=== PATIENT | female | born 1975 | race Caucasian/White ===

== ENCOUNTER 2021-08-01 14:04 | Outpatient (REF) | payer MEDICAID, SELFPAY ==
--- NOTE | 2021-08-01 13:15 | ENDOMET_PTH ---
PATIENT: Ermelinda Vu LOC: [facility] U#:[id number] AGE/SX: 46/F ROOM: RE08/01/[address]: Megan Limon : 1975 BED: DIS: 08/01/2021 SPEC #: [id number] RECD: 08/01/21 17:22 STATUS: CARLOS REQ #: [id number] ELVI: 08/01/21 13:[address]: Megan Limon DEPT: Surgical Specimen RECD BY: Shoshana Mancini ENTERED: 08/01/21 17:32 SP TYPE: Endomet OT DR: Rosalie Marie Tissues: 1 - ENDOMETRIUM BX/ALEJANDROETTE Procedures: GROSS AND MICRO LEVEL 4 Comments: [id number]
--- NOTE | 2021-08-01 13:15 | PAPFT_PTH ---
PATIENT: Ermelinda Vu LOC: [facility] U#:[id number] AGE/SX: 46/F ROOM: RE08/01/[address]: Megan Limon : 1975 BED: DIS: 08/01/2021 SPEC #: [id number] RECD: 08/01/21 17:41 STATUS: CARLOS REShai #: [id number] ELVI: 08/01/21 13:[address]: Megan Limon DEPT: [facility] Cytology RECD BY: Shoshana Mancini ENTERED: 08/01/21 17:41 SP TYPE: PAPFT OTHR DR: Rosalie Marie Tissues: 1 - CX/ENDOCX FOR PAP SMEARS Procedures: PAP THIN PREP/UVM Screening HPV DNA PROBE Comments: [id number]
== END 2021-08-01 14:05 | disposition home or self-care (01) ==
LOC: LBN 14:04
PROVIDERS: PCP Internal Medicine; Visit Provider Obstetrics & Gynecology Gynecology
DX: N93.9 Abnormal uterine and vaginal bleeding, unspecified (principal); Z12.4 Encounter for screening for malignant neoplasm of cervix
CPT/HCPCS: 88142; 88305; 87624

== ENCOUNTER 2021-09-06 02:39 | Outpatient (CLI) | payer MEDICAID, SELFPAY ==
[2021-09-06 09:12] LABS: Source Nasal/Nares
[2021-09-06 09:55] LABS: HCT 42.5 % (36.0-46.0); HGB 14.4 g/dL (11.2-15.7); MCHC 33.9 % (32.0-36.0); MCV 91 fL (80-95); MPV 8.8 fL (8.0-11.0); Platelet Count 244 10^3/uL (130-400); RBC 4.65 10^6/uL (3.93-5.22); RDW 11.6 % (11.7-14.6); WBC 6.72 10^3/uL (4.4-10.8)
[2021-09-06 10:48] LABS: HCG Qual (Serum) Negative
[2021-09-06 10:52] LABS: ALT 31 U/L (14-59); AST 28 U/L (15-37); Alkaline Phosphatase 93 U/L (46-116); Anion Gap 8.3 mmol/L (3-11); BUN 11 mg/dL (7-18); Bilirubin, Total 0.3 mg/dL (0.2-1.0); CO2 29.7 mmol/L (21.0-32.0); CREATININE 0.7 mg/dL (0.55-1.02); Calcium 8.7 mg/dL (8.5-10.1); Chloride 103 mmol/L (98-107); Glucose 93 mg/dL (74-106); Potassium 4.1 mmol/L (3.5-5.1); Sodium 141 mmol/L (136-145); Total Protein 7.1 g/dL (6.4-8.2)
[2021-09-06 15:42] LABS: COVID-19 PCR Negative (Negative)
== END 2021-09-06 02:40 | disposition home or self-care (01) ==
LOC: LBO 02:39
PROVIDERS: PCP Internal Medicine; Visit Provider Obstetrics & Gynecology Gynecology
DX: R10.2 Pelvic and perineal pain (principal); N92.0 Excessive and frequent menstruation with regular cycle; Z20.822 Contact with and (suspected) exposure to COVID-19; Z01.818 Encounter for other preprocedural examination; Z01.812 Encounter for preprocedural laboratory examination
CPT/HCPCS: 36415; 80053; 85027; 86850; 86900; 86901; 87635; 84703

== ENCOUNTER 2021-09-06 02:39 | Outpatient (CLI) | payer MEDICAID, SELFPAY | END 2021-09-06 02:40 | disposition home or self-care (01) | LOC: LBO 02:39 | PROVIDERS: PCP Internal Medicine; Visit Provider Obstetrics & Gynecology Gynecology ==

== ENCOUNTER 2021-09-07 09:13 | Day surgery (SDC) | payer MEDICAID, SELFPAY ==
[2021-09-07] VITALS (10 sets, daily range): BP systolic 136–160; BP diastolic 62–85; PULSE 63–75; RESP 16–22; TEMP 36.3–37.1; O2SAT 98–100; BMI 25.0
[2021-09-07] MEDS: Lactated Ringers 1,000 ML 125 ML IV (10:02)
--- NOTE | 2021-09-07 10:54 | ANES.PREOP_ITS ---
General Info Date of Service Date Performed: 09/07/21 Height: 5 ft 1 in Weight: 60 kg Body Mass Index (BMI): 25.0 Surgical Procedure: Operation Date: 09/07/21 11:10 Proposed Procedure Side Surgeon p Endometrial Ablation HTA Megan Limon MD Meds Allergies and Home Medications Allergies Allergy/AdvReac Type Severity Reaction Status Date / Time venom-wasp Allergy Severe Anaphylaxis Verified 09/07/21 09:40 fenofibrate Allergy Mild Other (See Verified 09/07/21 09:41 Comment) Penicillins Allergy Mild Hives Verified 09/07/21 09:41 Home Medication Medication Instructions Recorded epinephrine 0.3 mg/0.3 mL 0.3 mg IM ONCE 09/22/20 injection, auto-injector (EpiPen) trazodone 50 mg tablet 50 mg PO DAILY 09/22/20 Current Visit Medications: Current Medications Generic Name Dose Route Start Last Admin Trade Name Freq PRN Reason Stop Dose Admin Ringer's Solution 1,000 mls @ 125 mls/hr 09/07/21 06:00 09/07/21 10:02 IV 10/06/21 23:59 125 mls/hr INFUSION BARBARA Administration IV Miscellaneous Supplies 1 each 09/07/21 06:00 Iv Access IV 10/06/21 23:59 DIRECTED BARBARA Sodium Chloride 0 ml 09/07/21 06:00 Normal Saline Flush 10 Ml Syr IV 10/06/21 23:59 PRN PRN Sodium Chloride 0 ml 09/07/21 06:00 Normal Saline 10 Ml Vial IJ 10/06/21 23:59 DIRECTED PRN Sterile Water 0 ml 09/07/21 06:00 Water,Injection,Sterile 10 Ml Vial IJ 10/06/21 23:59 DIRECTED PRN PFSH Active Problems Active Problems: Problem Status Onset Code Intramural uterine fibroid D25.1 Pelvic and perineal pain R10.2 Hypertriglyceridemia E78.1 Hyperlipidemia E78.5 Anxiety F41.9 Panic attack F41.0 Tobacco use Z72.0 Nightmares F51.5 PTSD (post-traumatic stress disorder) F43.10 Fibromyalgia M79.7 Family history of premature coronary heart disease Z82.49 Plantar fasciitis M72.2 Depressive disorder F32.9 Heavy menstrual bleeding N92.0 Otomycosis of both ears B36.9, H62.43 Preoperative exam for gynecologic surgery Z01.818 Medical History Medical History Carpal tunnel syndrome Patient denies Flashbacks Ganglion cyst Genital herpes pt. denies Genital warts pt. denies Hearing loss Insomnia Low back pain Lump of left breast Otitis media, purulent Plantar fascia syndrome Plantar nerve lesion per patient she does not have. Secondary syphilis of skin and mucous membrane Medical History Comments:: pt. stated that her daughter woke up screaming after the surgery Surgical History Surgical History H/O section 04/29/1995 H/O wisdom tooth extraction History of bilateral ligation of fallopian tubes 2013 Tobacco Smoking/Tobacco Use Status: Former Tobacco Use Alcohol Alcohol Intake: never Substance Use Substance use: Daily Substance use type: marijuana Details: Marajuana use for anxiety Prental History History 3 Para 2 Hx # Term Pregnancies Multiple births Hx # Pregnancies Ectopic pregnancies AB induced Hx Number of Living Children AB spontaneous 1 Vital Signs and Lab Results Vital Signs Most Recent Vital Signs in EMR: Most Recent Vital Signs Temp Pulse Resp BP Pulse Ox 37.1 C 75 17 139/67 98 09/07/21 09:44 09/07/21 09:44 09/07/21 09:44 09/07/21 09:44 09/07/21 09:44 Lab Results Blood Type / Crossmatch: Patient ABO/Rh A Negative 09/07/21 Antibody Screen NEGATIVE 09/06/21 Complete Blood Count: White Blood Count 6.72 10^3/uL (4.4-10.8) 09/06/21 09:42 Red Blood Count 4.65 10^6/uL (3.93-5.22) 09/06/21 09:42 Hemoglobin 14.4 g/dL (11.2-15.7) 09/06/21 09:42 Hematocrit 42.5 % (36.0-46.0) 09/06/21 09:42 Platelet Count 244 10^3/uL (130-400) 09/06/21 09:42 Complete Metabolic Panel: Sodium Level 141 mmol/L (136-145) 09/06/21 09:42 Potassium Level 4.1 mmol/L (3.5-5.1) 09/06/21 09:42 Chloride Level 103 mmol/L (98-107) 09/06/21 09:42 Carbon Dioxide Level 29.7 mmol/L (21.0-32.0) 09/06/21 09:42 Blood Urea Nitrogen 11 mg/dL (7-18) 09/06/21 09:42 Creatinine 0.7 mg/dL (0.55-1.02) 09/06/21 09:42 Estimated GFR/1.73 m2 >= 60.00 (mL/min/1.73m2) 09/06/21 09:42 Calcium Level 8.7 mg/dL (8.5-10.1) 09/06/21 09:42 Albumin 4.0 g/dL (3.4-5.0) 09/06/21 09:42 Glucose Level 93 mg/dL (74-106) 09/06/21 09:42 Liver Function Panel: Alanine Aminotransferase (ALT/SGPT) 31 U/L (14-59) 09/06/21 09: 42 Aspartate Amino Transf (AST/SGOT) 28 U/L (15-37) 09/06/21 09:42 Coagulation Panel: No Data to Display Cardiac Panel: No Data to Display Arterial Blood Gas: No Data to Display Venous Blood Gas: No Data to Display Pancreas Panel: No Data to Display Thyroid Panel: No Data to Display Infectious Disease: Coronavirus (COVID-19)(PCR) Negative (Negative) 09/06/21 09:00 Coronavirus 2019 Source Nasal/Nares 09/06/21 09:00 Blood Cultures: No Data to Display Toxicology Panel: No Data to Display Panel: Serum HCG, Qualitative Negative 09/06/21 09:42 Anesthesia Assessment and Plan Anesthesia History Personal History: No History of Anesthesia Complications Family History: Other (15 yo Daughter woke up screaming and crying after TKA sp trauma) Exercise Tolerance Exercise Tolerance: Metabolic Equivalents>4 Pertinent Negatives Pertinent Negatives: No Symptoms of GERD, No Major Cardiovascular Symptoms or Complaints, No Major Pulmonary Symptoms or Complaints (Quit smoking cigarettes 2 years ago, smokes marijuana daily ) and No History of CVA/TIA Cardiac & Pulmonary Exam Cardiac Exam: Normal S1/S2 Heart Sounds Pulmonary Exam: Clear Bilateral Breath Sounds Implantable Cardiac Device Does patient have a Pacemaker or an ICD?: No Airway Exam Known Difficult Airway: No Mallampati Class: 1 Mouth Opening: Normal (> 3cm) Thyromental Distance: Greater than 3 cm Neck Range of Motion: Full ROM Neck Circumference: Normal Teeth Condition: Normal Dentition and Generalized Poor Dentition (#11 broken in half, bottom right missing two teeth) ASA Classification ASA Score: ASA 2 Emergency Case?: No NPO Status NPO Status: NPO Clears >2 hours, Solids >8 hours Status Status: Negative HCG Anesthesia Plan Resuscitation Status: Full Code Anesthesia Technique: General Anesthesia Airway Planned: LMA Monitors Used: Standard Monitors
--- NOTE | 2021-09-07 12:13 | PDOC.DSDIS_ITS ---
Discharge Plan Disposition Patient Disposition: HOME Condition: Good Discharge Details Reason For Visit: Hydrothermal endometrial ablation Attending Provider: Megan Limon Primary Care Provider: Rosalie Marie Home Meds and New Rx's Prescriptions: No Action epinephrine [EpiPen] 0.3 mg/0.3 mL auto-injector 0.3 mg IM ONCE Rx Instructions: as a single dose trazodone 50 mg tablet 50 mg PO DAILY Discharge Instructions Additional Instructions: Please call Dr. Limon with any concerns or questions. If you have bleeding h eavier than a regular menses or pain not relieved with Motrin or Percocet then call [phone]. I will have a prescription for Percocet at your pharmacy you may pick it up when you are discharged. [facility] your follow-[facility] 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
--- NOTE | 2021-09-07 12:50 | W.ANESPOSTOP ---
Postoperative Evaluation Date, Time and Location Date Performed: 09/07/21 Time Performed: 11:50 Patient Location: Day Surgery Unit Vital Signs Most Recent Imported Vital Signs: Most Recent Vital Signs Temp Pulse Resp BP Pulse Ox 36.4 C L 67 20 148/62 H 100 09/07/21 12:47 09/07/21 12:47 09/07/21 12:47 09/07/21 12:47 09/07/21 12:47 Pain Score Most Recent Pain Score: Most Recent Pain Score Pain Level 0 09/07/21 12:47 Assessment Mental Status: Awake (Alert & Oriented to Patient Baseline) Airway and Respiratory Function: Patent airway with normal (patient baseline) respiratory exam Cardiovascular Function: Hemodynamically Stable Hydration Status: Adequately Hydrated Nausea & Vomiting: No Nausea or Vomiting Pain: Pt. Denies Any Pain Peripheral Nerve Block: Patient did not receive a nerve block
[2021-09-07] MEDS: oxyCODONE 5 mg/Acetaminophen 325 mg TAB PO (13:11)
--- NOTE | 2021-09-08 13:18 | W.PM.OP ---
Date of service: 09/08/21 Time of Service: 12:18 Operative Note Operative Note DATE OF PROCEDURE: 09/07/21 PRE-OP DIAGNOSIS: abnormal uterine bleeding POST-OP DIAGNOSIS: same PROCEDURE: Hydrothermal endometrial ablation SURGEON: Megan Limon Refer to Anesthesia Record ESTIMATED BLOOD LOSS: 0 PATHOLOGY: none sent COMPLICATIONS: None Patient was transported to: same day Patient's condition: stable Indications: Pt is a 45yo female with a longstanding hx?heavy bleeding and menstrual discomfort. Her main issue has been heavy flow, abdominal bloating and up to 3 menses/mo. Findings: Normal-appearing endometrial cavity with exception of 1 cm polyp right fundus in proximity to the right tubal ostia. Procedure Description: Patient was taken to the operating room where she was placed in the dorsal supine position and LMA general anesthesia was administered without difficulty. She was then placed in the dorsolithotomy position in yellowfin stirrups and prepped and draped in the usual sterile fashion. SCDs were in place. No antibiotics were required. After a surgical timeout was performed a bivalve speculum was placed in the patient's vagina. The anterior lip of the cervix was infiltrated with 1 cc 0.25% bupivacaine and a single-tooth tenaculum was used to grasp the anterior lip of the cervix. A paracervical block was performed with infiltration of 5 cc of 0.25% bupivacaine at the 4 o'clock and 8 o'clock paracervical spaces respectively. Cervix was then sequentially dilated to a maximum of 8 Janey. A HTA hysteroscope sheath was inserted into the uterine cavity and a cavity assessment was performed with the above noted findings. The tip of the hysteroscope sheath was positioned to allow visualization of the uterine fundus, both tubal ostia in the midportion of the uterine cavity. The sheath was protected from the vaginal zapata by the vaginal speculum. Heated isotonic saline was then administered via gravity into the uterus through the sheath. Once a safety assessment was performed the treatment phase of the procedure began the uterine cavity was treated with heated isotonic saline at 90 ?C for 10 minutes with continuous visualization of the process via hysteroscope. Intrauterine cool-down phase was performed for 1 minute. The uterine cavity was carefully assessed with hysteroscopy and was noted to have a satisfactory treatment effect and the integrity of the uterine cavity was confirmed. The endometrial polyp was not identified at the completion of the procedure. After these findings the hysteroscope was removed and the instruments removed from the vagina. Tenaculum site was noted to be hemostatic. The patient was placed in the dorsal supine position. She was successfully awakened from anesthesia and transported to day surgery unit in stable condition. All sponge lap needle counts correct x2
== END 2021-09-07 13:45 | disposition home or self-care (01) ==
PROVIDERS: PCP Internal Medicine; Visit Provider Obstetrics & Gynecology Gynecology
PROC: (CPT 58353; principal; 2021-09-07 11:00)
DX: N93.8 Other specified abnormal uterine and vaginal bleeding (principal); R10.2 Pelvic and perineal pain; D25.1 Intramural leiomyoma of uterus; E78.1 Pure hyperglyceridemia; E78.5 Hyperlipidemia, unspecified; F41.0 Panic disorder [episodic paroxysmal anxiety]; F17.210 Nicotine dependence, cigarettes, uncomplicated; M79.7 Fibromyalgia; F32.A Depression, unspecified
CPT/HCPCS: 58563; 36415; 86900; 86901; J0131; J1100; J1885; J2250; J2405

== ENCOUNTER 2023-10-31 15:54 | Outpatient (REF) | payer MEDICAID, SELFPAY ==
--- NOTE | 2023-10-31 15:30 | PAPFT_PTH ---
PATIENT: Ermelinda Vu LOC: [facility] U#:[id number] AGE/SX: 48/F ROOM: RE10/31/[address]: Brenda Prado MD : 1975 BED: DIS: 10/31/2023 SPEC #: [id number] RECD: 10/31/23 18:21 STATUS: CARLOS REShai #: [id number] ELVI: 10/31/23 15:[address]: Brenda Prado DEPT: [facility] Cytology RECD BY: Shoshana Mancini ENTERED: 10/31/23 18:21 SP TYPE: PAPFT OTHR DR: Rosalie Marie Tissues: 1 - CX/ENDOCX FOR PAP SMEARS Procedures: PAP THIN PREP/UVM Screening HPV DNA PROBE Comments: [id number] (HPV 16 & 18/45)
== END 2023-10-31 15:55 | disposition home or self-care (01) ==
LOC: LBN 15:54
PROVIDERS: PCP Internal Medicine; Visit Provider Obstetrics & Gynecology
DX: Z12.4 Encounter for screening for malignant neoplasm of cervix (principal); Z11.51 Encounter for screening for human papillomavirus (HPV)
CPT/HCPCS: 88142; 87624